=== PATIENT | female | born 1960 | race African-American/Black ===

== ENCOUNTER → 2018-08-16 | Outpatient (CLI) | payer OTHER ==
--- NOTE | 2018-08-16 17:35 | KCIC ---
MRI of the lumbar spine without contrast 08/16/2018 CLINICAL HISTORY: Low back pain which radiates down both legs. TECHNIQUE: Unenhanced T1-weighted and T2-weighted sagittal and axial and inversion recovery sagittal images of the lumbar spine were obtained. FINDINGS: Minimal S-shaped curvature of the thoracolumbar spine is seen. Mild anterolisthesis of L4 in relation to L5 is noted. Degenerative signal changes are seen involving all of the disks of the lumbar spine. Degenerative signal changes are seen within the marrow surrounding these discs. The conus medullaris is normal in morphology, position, and signal characteristics. The L1-2 disc space is within normal limits. At the L2-3 disc space there is a mild generalized disc bulge. Degenerative changes are seen involving the facet joints bilaterally. There is moderate ligamentum flavum hypertrophy bilaterally. There is prominence of the posterior epidural fat. These findings when combined result in mild to moderate central spinal canal stenosis. No neural foraminal stenosis is seen. At the L3-4 disc space there is a mild generalized disc bulge. Degenerative changes are seen involving the facet joints bilaterally. There is moderate ligamentum flavum hypertrophy bilaterally. There is prominence of the posterior epidural fat. These findings when combined result in mild central spinal canal stenosis. No neural foraminal stenosis is seen. At the L4-5 disc space there is a moderate generalized disc bulge. Degenerative changes are seen involving the facet joints bilaterally. There is moderate ligamentum flavum hypertrophy bilaterally. There is a small to moderate-sized right facet joint effusion. These findings when combined result in mild to moderate central spinal canal stenosis. Mild bilateral neural foraminal stenosis is seen. At the L5-S1 disc space there is a mild generalized disc bulge. This is eccentric to the left. Degenerative changes are seen involving the facet joints bilaterally. There is moderate ligamentum flavum hypertrophy bilaterally. Small to moderate-sized facet joint effusions are seen, left greater than right. These findings when combined result in mild central spinal canal stenosis. Mild to moderate bilateral neural foraminal stenosis is seen. IMPRESSION: The changes of degenerative disc disease are seen throughout the lumbar spine. These findings result in mild to moderate central spinal canal stenosis at L2-3, L3-4 and L4-5. Mild central spinal canal stenosis is seen at L5-S1. Mild bilateral neural foraminal stenosis is seen at L4-5. Mild to moderate bilateral neural foraminal stenosis is seen at L5-S1. Electronically signed by: Adam Lawrence MD (08/16/2018 5:31 PM) [id number]
== END | disposition home or self-care (01) ==
LOC: KCIC MRI 16:23
PROVIDERS: ATTEND Physical Medicine & Rehabilitation
DX: M51.36 Other intervertebral disc degeneration, lumbar region (principal); M48.07 Spinal stenosis, lumbosacral region; M54.16 Radiculopathy, lumbar region
CPT/HCPCS: 72148